=== PATIENT | male | born 2000 | race Caucasian/White ===

== ENCOUNTER 2021-01-08 16:15 | Emergency (ER) | payer OTHER, SELFPAY | END 2021-01-08 17:30 | disposition home or self-care (01) | LOC: CSHERS 16:15 | DX: S39.012A Strain of muscle, fascia and tendon of lower back, initial encounter (principal); F17.290 Nicotine dependence, other tobacco product, uncomplicated; V89.2XXA Person injured in unspecified motor-vehicle accident, traffic, initial encounter | CPT/HCPCS: 72100 ==